=== PATIENT | male | born 1995 | race African-American/Black ===

== ENCOUNTER 2017-11-29 15:58 | Emergency (ER) | payer SELFPAY ==
[~2017-11-29] VITALS: Ht 198.1 cm; Wt 172.7 kg
[2017-11-29] MEDS ORDERED: SODIUM CHLORIDE 0.9% 1,000 ML IV ONE (16:15)
[2017-11-29] MEDS ORDERED: KETOROLAC TROMETHAMINE 30 MG/ML VIAL IVP ONE (16:15)
[2017-11-29] MEDS ORDERED: DiphenhydrAMINE HCL 50 MG/ML VIAL IVP ONE (16:15)
[2017-11-29] MEDS ORDERED: METOCLOPRAMIDE HCL 5 MG/ML 2 ML VIAL IVP ONE (16:15)
[2017-11-29 18:24] VITALS: BP 136/72
[2017-11-29 21:34] LABS: EOSINOPHILS % (AUTO) 4.1 % (1.0-6.0); HEMATOCRIT 42.6 % (41-53); HEMOGLOBIN 13.8 g/dL (13.5-17.5); LYMPHOCYTES % (AUTO) 16.6 % (22.0-44.0); MEAN CORPUSCULAR HEMOGLOBIN 24.2 pg (26.0-34.0); MEAN CORPUSCULAR HGB CONC 32.3 G/dL (31.0-37.0); MEAN CORPUSCULAR VOLUME 75 fL (80-100); MONOCYTES # (AUTO) 0.7 K/uL (0.1-1.0); MONOCYTES % (AUTO) 10.8 % (2.0-9.0); NEUTROPHILS # (AUTO) 4.3 K/uL (1.8-7.7); NEUTROPHILS % (AUTO) 68.5 % (40.0-70.0); PLATELET COUNT (AUTO) 282 K/uL (150-450)
[2017-11-29 21:44] LABS: ANION GAP 9 mmol/L (8-16); CALCIUM, TOTAL 8.6 mg/dL (8.8-10.5); CARBON DIOXIDE 27 mmol/L (22-29); CHLORIDE 105 mmol/L (98-107); CREATININE 1.11 mg/dL (0.60-1.30); GLOMERULAR FILTR. RATE CALC > 60 mL/min (>60); GLUCOSE,RANDOM 83 mg/dL (70-110); POTASSIUM 3.2 mmol/L (3.5-5.1); SODIUM SERUM 141 mmol/L (136-145); UREA NITROGEN, BLOOD 11 mg/dL (7-18)
[2017-11-29 21:52] LABS: ALANINE AMINOTRANSFERASE 81 U/L (12-78); ALBUMIN 3.7 g/dL (3.4-5.0); ALKALINE PHOSPHATASE 48 U/L (46-116); ASPARTATE AMINOTRANSFERASE 52 U/L (15-37); BILIRUBIN,TOTAL 0.6 mg/dL (0.1-1.0); LIPASE 57 U/L (73-393)
== END 2017-11-29 20:08 | disposition home or self-care (01) ==
LOC: EMS 15:59
DX: R10.9 Unspecified abdominal pain (principal); G43.909 Migraine, unspecified, not intractable, without status migrainosus; J45.909 Unspecified asthma, uncomplicated; F12.10 Cannabis abuse, uncomplicated; Z88.8 Allergy status to other drugs, medicaments and biological substances
CPT/HCPCS: 36415; 80053; 83690; 85025; 96361; 96374; 96375; 99284; J1200; J1885; J2765; J7030

== ENCOUNTER 2017-12-02 00:13 | Emergency (ER) | payer SELFPAY ==
[~2017-12-02] VITALS: Ht 205.7 cm; Wt 136.0 kg
[2017-12-02] MEDS ORDERED: 0.9% SODIUM CHLORIDE 5 ML NEB SOLUTION NEB ONE ×3 (02:25→05:34)
[2017-12-02] MEDS ORDERED: ALBUTEROL SULFATE 5 MG/ML 20 ML NEB SOLN [BULK] NEB ONE ×3 (02:30→05:30)
[2017-12-02] MEDS ORDERED: IPRATROPIUM BROMIDE 0.5 MG/2.5 ML NEB SOLUTION NEB ONE ×3 (02:30→05:30)
[2017-12-02] MEDS ORDERED: PredniSONE 20 MG TABLET PO ONE (05:30)
[2017-12-02 06:32] VITALS: BP 128/60
[2017-12-02] MEDS ORDERED: ACETAMINOPHEN 325 MG TABLET PO ONE (07:15)
[2017-12-02] MEDS ORDERED: ALBUTEROL SULFATE HFA 90 MCG/PUFF 8 GM INHALER IH ONE (07:30)
== END 2017-12-02 08:30 | disposition home or self-care (01) ==
LOC: EMS 00:14
DX: J45.901 Unspecified asthma with (acute) exacerbation (principal); F12.90 Cannabis use, unspecified, uncomplicated; Z88.6 Allergy status to analgesic agent
CPT/HCPCS: 71010; 94644; 94645; 99285; J7512; J7611; J3535

== ENCOUNTER 2018-01-02 13:33 | Emergency (ER) | payer MEDICAID ==
[~2018-01-02] VITALS: Ht 198.1 cm; Wt 170.4 kg
[2018-01-02] MEDS ORDERED: ALBU2TAB42 PO (13:43)
[2018-01-02] MEDS ORDERED: PENICILLIN G BENZATHINE LA 1,200,000 UNITS/2 ML SYRINGE IM ONE (14:15)
[2018-01-02] MEDS ORDERED: DEXAMETHASONE SOD PHOS 4 MG/ML 5 ML VIAL IM ONE (14:15)
[2018-01-02] MEDS ORDERED: HYDROCODONE/ACETAMINOPHEN 5-325 MG TABLET PO ONE (14:15)
[2018-01-02 14:55] VITALS: BP 132/87
== END 2018-01-02 15:02 | disposition home or self-care (01) ==
LOC: EMS 13:34
DX: J02.0 Streptococcal pharyngitis (principal); R03.0 Elevated blood-pressure reading, without diagnosis of hypertension; R11.10 Vomiting, unspecified; J45.909 Unspecified asthma, uncomplicated; F17.210 Nicotine dependence, cigarettes, uncomplicated; F12.90 Cannabis use, unspecified, uncomplicated; Z88.6 Allergy status to analgesic agent
CPT/HCPCS: 96372; 99284; J0561; J1100

== ENCOUNTER 2018-11-14 11:37 | Emergency (ER) | payer MEDICAID, OTHER ==
[~2018-11-14] VITALS: Ht 198.1 cm; Wt 181.8 kg
[~2018-11-14 11:37] MED LIST: ALBU2TAB42 PO
[2018-11-14] MEDS ORDERED: IBUPROFEN 600 MG TABLET PO ONE (13:30)
[2018-11-14] MEDS ORDERED: CYCLOBENZAPRINE HCL 10 MG TABLET PO ONE (13:30)
[2018-11-14] MEDS ORDERED: ACETAMINOPHEN 325 MG TABLET PO ONE (13:30)
[2018-11-14 13:51] VITALS: BP 139/80
== END 2018-11-14 14:35 | disposition home or self-care (01) ==
LOC: EMS 11:38
DX: M54.2 Cervicalgia (principal); M62.838 Other muscle spasm; F41.9 Anxiety disorder, unspecified; J45.909 Unspecified asthma, uncomplicated; F17.210 Nicotine dependence, cigarettes, uncomplicated; F12.10 Cannabis abuse, uncomplicated; R51 Headache; Z88.6 Allergy status to analgesic agent; Z79.899 Other long term (current) drug therapy; V43.52XA Car driver injured in collision with other type car in traffic accident, initial encounter; Y93.89 Activity, other specified; Y92.488 Other paved roadways as the place of occurrence of the external cause; Y99.8 Other external cause status
CPT/HCPCS: 99406

== ENCOUNTER 2022-06-30 07:57 | Emergency (ER) | payer OTHER ==
[~2022-06-30] VITALS: Ht 198.1 cm; Wt 209.1 kg
[2022-06-30 08:14] VITALS: BP 171/91
[2022-06-30] MEDS ORDERED: METOCLOPRAMIDE HCL 5 MG/ML 2 ML VIAL IVP ONE (09:15)
[2022-06-30] MEDS ORDERED: ONDANSETRON HCL 4 MG/2 ML VIAL IVP ONE (09:15)
[2022-06-30] MEDS ORDERED: KETOROLAC TROMETHAMINE 30 MG/ML VIAL IVP ONE (09:15)
[2022-06-30] MEDS ORDERED: DiphenhydrAMINE HCL 50 MG/ML VIAL IVP ONE (09:15)
[2022-06-30] MEDS ORDERED: SODIUM CHLORIDE 0.9% 1,000 ML IV ONE (09:15)
== END 2022-06-30 10:43 | disposition home or self-care (01) ==
LOC: EMS 07:57
DX: G43.909 Migraine, unspecified, not intractable, without status migrainosus (principal); F41.9 Anxiety disorder, unspecified; F12.90 Cannabis use, unspecified, uncomplicated; F17.210 Nicotine dependence, cigarettes, uncomplicated; J45.909 Unspecified asthma, uncomplicated
CPT/HCPCS: 99284; 96374; 96375; 96361; J1200; J1885; J2765; J2405; J7030